=== PATIENT | male | born 1950 | race Caucasian/White ===

== ENCOUNTER 2017-08-17 13:33 | Emergency (ER) | payer MEDICAID ==
[~2017-08-17] VITALS: Ht 188 cm; Wt 118.4 kg
[2017-08-17] MEDS ORDERED: HYDROcodone/APAP 5/325 TABLET ONE (16:20)
[2017-08-17] MEDS ORDERED: HYDROcodone/APAP 5/325 TABLET PO ONE (16:30)
[2017-08-17 16:46] LABS: HEMATOCRIT 41.3 % (39.2-51.8); HEMOGLOBIN 13.9 g/dL (13.7-18.0); WHITE BLOOD COUNT 8.4 x10^3/uL (3.4-10)
[2017-08-17 16:56] LABS: BLOOD UREA NITROGEN 20 mg/dL (7-18)
[2017-08-17 17:27] VITALS: BP 105/56
[2017-08-17] MEDS ORDERED: BACITRACIN ZINC OINT 500U/GM, 0.9 GM ONE (17:30)
== END 2017-08-17 17:42 | disposition home or self-care (01) ==
LOC: ED 17:36
DX: I83.018 Varicose veins of right lower extremity with ulcer other part of lower leg (principal); L97.811 Non-pressure chronic ulcer of other part of right lower leg limited to breakdown of skin; E78.5 Hyperlipidemia, unspecified; F17.200 Nicotine dependence, unspecified, uncomplicated; I10 Essential (primary) hypertension; Z90.49 Acquired absence of other specified parts of digestive tract
CPT/HCPCS: 36415; 80048; 82040; 85025; 99284

== ENCOUNTER → 2017-08-28 | Outpatient (CLI) | payer MEDICAID | END | disposition home or self-care (01) | LOC: WOUND 14:10 | PROVIDERS: ATTEND Family Medicine | DX: I87.2 Venous insufficiency (chronic) (peripheral) (principal); L97.211 Non-pressure chronic ulcer of right calf limited to breakdown of skin; L97.221 Non-pressure chronic ulcer of left calf limited to breakdown of skin; I10 Essential (primary) hypertension; E78.5 Hyperlipidemia, unspecified; F17.200 Nicotine dependence, unspecified, uncomplicated | CPT/HCPCS: 97597; 97598; 99205; 99215 ==

== ENCOUNTER → 2017-09-07 | Outpatient (CLI) | payer MEDICAID | END | disposition home or self-care (01) | LOC: WOUND 13:43 | PROVIDERS: ATTEND Internal Medicine | DX: I87.2 Venous insufficiency (chronic) (peripheral) (principal); L97.211 Non-pressure chronic ulcer of right calf limited to breakdown of skin; L97.221 Non-pressure chronic ulcer of left calf limited to breakdown of skin; I10 Essential (primary) hypertension; E78.5 Hyperlipidemia, unspecified; F17.200 Nicotine dependence, unspecified, uncomplicated | CPT/HCPCS: 97597; 97598 ==

== ENCOUNTER → 2017-09-14 | Outpatient (CLI) | payer MEDICAID | END | disposition home or self-care (01) | LOC: WOUND 14:08 | PROVIDERS: ATTEND Family Medicine | DX: I87.2 Venous insufficiency (chronic) (peripheral) (principal); L97.211 Non-pressure chronic ulcer of right calf limited to breakdown of skin; L97.221 Non-pressure chronic ulcer of left calf limited to breakdown of skin; I10 Essential (primary) hypertension; E78.5 Hyperlipidemia, unspecified; F17.200 Nicotine dependence, unspecified, uncomplicated; Z90.49 Acquired absence of other specified parts of digestive tract | CPT/HCPCS: 97597 ==

== ENCOUNTER → 2017-09-29 | Outpatient (CLI) | payer MEDICAID | END | disposition home or self-care (01) | LOC: CVU 13:06 | PROVIDERS: ATTEND Family Medicine | DX: L97.811 Non-pressure chronic ulcer of other part of right lower leg limited to breakdown of skin (principal); L97.821 Non-pressure chronic ulcer of other part of left lower leg limited to breakdown of skin; E78.5 Hyperlipidemia, unspecified; F17.210 Nicotine dependence, cigarettes, uncomplicated | CPT/HCPCS: 93922; 93925 ==

== ENCOUNTER → 2019-11-15 | Outpatient (CLI) | payer MEDICARE, MEDICAID | END | disposition home or self-care (01) | LOC: WOUND 09:07 | PROVIDERS: ATTEND Nurse Practitioner Family | DX: I87.311 Chronic venous hypertension (idiopathic) with ulcer of right lower extremity (principal); L97.822 Non-pressure chronic ulcer of other part of left lower leg with fat layer exposed; E78.5 Hyperlipidemia, unspecified; F17.210 Nicotine dependence, cigarettes, uncomplicated; Z59.0 Homelessness | CPT/HCPCS: 97597; 97598; G0463 ==

== ENCOUNTER 2019-11-18 14:25 | Outpatient (CLI) | payer MEDICARE, MEDICAID | END 2019-11-18 23:59 | disposition home or self-care (01) | LOC: WOUND 14:25 | PROVIDERS: ATTEND Family Medicine | DX: I87.313 Chronic venous hypertension (idiopathic) with ulcer of bilateral lower extremity (principal); L97.822 Non-pressure chronic ulcer of other part of left lower leg with fat layer exposed; L97.811 Non-pressure chronic ulcer of other part of right lower leg limited to breakdown of skin; I10 Essential (primary) hypertension; E78.5 Hyperlipidemia, unspecified; F17.210 Nicotine dependence, cigarettes, uncomplicated; Z90.49 Acquired absence of other specified parts of digestive tract; Z59.0 Homelessness | CPT/HCPCS: 29581 ==

== ENCOUNTER 2019-11-22 09:05 | Outpatient (CLI) | payer MEDICARE, MEDICAID | END 2019-11-22 23:59 | disposition home or self-care (01) | LOC: WOUND 09:05 | PROVIDERS: ATTEND Nurse Practitioner Family | DX: I87.313 Chronic venous hypertension (idiopathic) with ulcer of bilateral lower extremity (principal); L97.811 Non-pressure chronic ulcer of other part of right lower leg limited to breakdown of skin; L97.821 Non-pressure chronic ulcer of other part of left lower leg limited to breakdown of skin; E78.5 Hyperlipidemia, unspecified; F17.210 Nicotine dependence, cigarettes, uncomplicated; Z59.0 Homelessness; Z90.49 Acquired absence of other specified parts of digestive tract | CPT/HCPCS: 29581; 97597 ==

== ENCOUNTER 2019-11-29 14:06 | Outpatient (CLI) | payer MEDICARE, MEDICAID | END 2019-11-29 23:59 | disposition home or self-care (01) | LOC: WOUND 14:06 | PROVIDERS: ATTEND Nurse Practitioner Family | DX: I87.313 Chronic venous hypertension (idiopathic) with ulcer of bilateral lower extremity (principal); L97.821 Non-pressure chronic ulcer of other part of left lower leg limited to breakdown of skin; L97.811 Non-pressure chronic ulcer of other part of right lower leg limited to breakdown of skin; E78.5 Hyperlipidemia, unspecified; F17.210 Nicotine dependence, cigarettes, uncomplicated; Z59.0 Homelessness; Z90.49 Acquired absence of other specified parts of digestive tract | CPT/HCPCS: 29581; 97597 ==

== ENCOUNTER → 2019-12-06 | Outpatient (CLI) | payer MEDICARE, MEDICAID | END | disposition home or self-care (01) | LOC: WOUND 10:47 | PROVIDERS: ATTEND Internal Medicine Infectious Disease | DX: I87.313 Chronic venous hypertension (idiopathic) with ulcer of bilateral lower extremity (principal); L97.822 Non-pressure chronic ulcer of other part of left lower leg with fat layer exposed; L97.811 Non-pressure chronic ulcer of other part of right lower leg limited to breakdown of skin; E78.5 Hyperlipidemia, unspecified; F17.210 Nicotine dependence, cigarettes, uncomplicated; Z59.0 Homelessness; Z90.49 Acquired absence of other specified parts of digestive tract | CPT/HCPCS: 97597 ==

== ENCOUNTER → 2019-12-13 | Outpatient (CLI) | payer MEDICARE, MEDICAID | END | disposition home or self-care (01) | LOC: WOUND 10:27 | PROVIDERS: ATTEND Nurse Practitioner Family | DX: I87.313 Chronic venous hypertension (idiopathic) with ulcer of bilateral lower extremity (principal); L97.811 Non-pressure chronic ulcer of other part of right lower leg limited to breakdown of skin; L97.821 Non-pressure chronic ulcer of other part of left lower leg limited to breakdown of skin; E78.5 Hyperlipidemia, unspecified; F17.210 Nicotine dependence, cigarettes, uncomplicated; Z59.0 Homelessness; Z90.49 Acquired absence of other specified parts of digestive tract | CPT/HCPCS: G0463 ==

== ENCOUNTER 2021-07-14 16:14 | Emergency (ER) | payer MEDICARE, MEDICAID ==
[~2021-07-14] VITALS: Ht 188 cm; Wt 133.0 kg
--- NOTE | 2021-07-14 16:40 | NUR ---
PULSES FOUND VIA DOPPLER ON RIGHT AND LEFT FOOT
[2021-07-14 16:56] LABS: BASOPHILS % (AUTO) 1 % (0-1); EOSINOPHILS % (AUTO) 1 % (1-7); LYMPHOCYTES % (AUTO) 11 % (22-44); MEAN CORPUSCULAR HEMOGLOBIN 29.7 pg (27.5-34.5); MEAN CORPUSCULAR HGB CONC 33.7 g/dL (33.2-36.2); MEAN PLATELET VOLUME 6.7 fL (7.4-10.4); MONOCYTES % (AUTO) 8 % (2-9); NEUTROPHILS % (AUTO) 79 % (42-75); PLATELET COUNT 640 x10^3/uL (130-400); RED BLOOD COUNT 3.69 x10^6/uL (4.38-5.82); RED CELL DISTRIBUTION WIDTH 15.4 % (9.4-14.8)
[2021-07-14] MEDS ORDERED: SODIUM CHLORIDE 0.9% 1,000ML IVBOLUS ONE (17:00)
[2021-07-14 17:09] LABS: CALCIUM 8.6 mg/dL (8.5-10.1); CHLORIDE 108 mmol/L (98-107)
[2021-07-14 17:12] LABS: ALANINE AMINOTRANSFERASE 19 U/L (12-78); ALKALINE PHOSPHATASE 105 U/L (45-117); BILIRUBIN,TOTAL 0.5 mg/dL (0.2-1.0); CREATININE 0.65 mg/dL (0.7-1.3); TOTAL PROTEIN 7.3 g/dL (6.4-8.2)
[2021-07-14 17:27] LABS: ANION GAP 4 mmol/L (5-15)
[2021-07-14] MEDS ORDERED: CLINDAMYCIN PMX 600MG/50ML 50 ML IV ONE (20:30)
[2021-07-14] MEDS ORDERED: CLINDAMYCIN PMX 600MG/50ML 50 ML ONE (20:33)
--- NOTE | 2021-07-14 20:54 | NUR ---
PT HAD BM IN HIS GURNEY. CLEANED PT. BIB EMS, STATE THEY FOUND PT DOWN IN THE GRASS. PT HAS SIGNIFICANT LOWER LEG CELULITIS. EKG COMPLETED. PT CONNECTED TO ALL MONITORS.
--- NOTE | 2021-07-14 21:44 | NUR ---
NEW IV PLACED IN LEFT HAND TO RUN ABX. PT RESTING ON [facility].
[2021-07-14 23:35] VITALS: BP 120/65
--- NOTE | 2021-07-14 23:50 | NUR ---
ASSISTED PT UP AND INTO NEW CLOTHES. SOCKS AND SHOES PLACED ON PT. PT AMBULATED TO THE RESTROOM WITH A WALKER. PT [id number]. SANDWICH AND DRINK PROVIDED UPON D/C.
== END 2021-07-14 23:52 | disposition home or self-care (01) ==
LOC: ED 16:19
DX: L03.116 Cellulitis of left lower limb (principal); L03.115 Cellulitis of right lower limb; I10 Essential (primary) hypertension; E78.5 Hyperlipidemia, unspecified
CPT/HCPCS: 36415; 80053; 83605; 85025; 87040; 93005; 93970; 96361; 96365; 99285; J7030